=== PATIENT | female | born 1935 | race Caucasian/White ===

== ENCOUNTER 2016-07-26 15:02 | Emergency (ER) | payer OTHER, BC ==
[~2016-07-26] VITALS: Ht 160 cm; Wt 68.0 kg
--- NOTE | ~2016-07-26 | EKG ---
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 : 1935 Requested By: Estelita Pretty Order Number: [id number] MD: Christopher Hidalgo Measurements Intervals [place] Rate: 80 P: MA: QRS: -4 QRSD: 137 T: 256 QT: 452 QTc: 522 Interpretive Statements Afib/flut and V-paced complexes No further analysis attempted due to paced rhythm Compared to ECG 04/06/2016 14:11:51 Ventricular premature complex(es) no longer present Right bundle-branch block no longer present Electronically Signed On 07-26-2016 16:13:02 [employer] WORK[employer] HELPER by Christopher Hidalgo [email or web address] <ELECTRONICALLY SIGNED> By: Christopher Hidalgo MD 07/26/16 1613 151 151 Christopher Hidalgo MD /SY
[~2016-07-26 15:02] MED LIST: ASPIR 8181 MG PO; FISH OIL 1,001000 M2 PO; HCTZ; LISINOPRIL5 MG PO; MACRODANTIN25 MG; PRAVASTATIN SOD10 MG; PRILOSEC40 MG PO; UNICOMPLEX M TA1 TA1 PO
[2016-07-26] MEDS ORDERED: ELIQUIS2.5 MG PO (15:05)
[2016-07-26] MEDS ORDERED: NITROFURANTOIN100 MG PO (15:05)
[2016-07-26 15:44] LABS: HEMATOCRIT 37.4 % (37.0-47.0); HEMOGLOBIN 12.5 gm/dL (12.0-15.0); MCH 30.9 pg (26.0-34.0); MCHC 33.4 % (28.0-37.0); MCV 92.6 fL (80.0-100.0); PLATELET COUNT 289 thou/uL (150-400); RBC 4.04 mil/uL (4.20-5.00)
[2016-07-26 15:47] LABS: MANUAL DIFF YES
[2016-07-26 16:10] LABS: ABSOLUTE NEUTROPHILS 6.1 thou/uL (1.4-8.2); ANION GAP 9 mmol/L (7-16); CHLORIDE 101 mmol/L (98-107); CO2 26 mmol/L (21-32); SODIUM 136 mmol/L (136-145); TOTAL CELL COUNT 100
[2016-07-26 16:11] LABS: ANISOCYTOSIS 1+; BUN 33 mg/dL (7-18); CALCIUM 9.6 mg/dL (8.5-10.1); CREATININE 1.5 mg/dL (0.6-1.3); GLUCOSE 140 mg/dL (70-99); TROPONIN-I < 0.04 ng/mL (<0.04-0.07)
[2016-07-26 16:30] LABS: SGOT 29 U/L (15-37)
[2016-07-26 16:31] LABS: ALKALINE PHOSPHATASE 113 U/L (46-116); SGPT 18 U/L (30-65); TOTAL BILIRUBIN 0.3 mg/dL (<0.1-1.0); TOTAL PROTEIN 7.4 g/dL (6.4-8.2)
[2016-07-26 16:32] LABS: ALBUMIN 3.5 g/dL (3.4-5.0)
[2016-07-26 18:00] LABS: URINE BILIRUBIN NEGATIVE (Negative); URINE BLOOD 3+ (Negative); URINE COLOR YELLOW; URINE GLUCOSE-RANDOM* NEGATIVE (Negative); URINE KETONES NEGATIVE (Negative); URINE NITRITE NEGATIVE (Negative); URINE PROTEIN (DIPSTICK) NEGATIVE (Negative); URINE SPECIFIC GRAVITY 1.015 (1.003-1.035); URINE UROBILINOGEN 0.2 E.U./dl (0.2-1.0)
[2016-07-26 18:14] LABS: BACTERIA None Seen /HPF (None Seen); CRYSTALS None Seen /LPF (None Seen); HYALINE CASTS 0-3 Few /LPF (None Seen); SQUAMOUS 4-10 Moderate /LPF (0-3); URINE RBC >20 Many /HPF (0-2); URINE WBC 0-5 Rare /HPF (0-5)
== END 2016-07-26 19:05 | disposition home or self-care (01) ==
LOC: ER 15:02
PROVIDERS: Emergency Medicine; Physician Assistant
DX: R53.1 Weakness (principal); R42 Dizziness and giddiness; I10 Essential (primary) hypertension; Z98.890 Other specified postprocedural states; F10.99 Alcohol use, unspecified with unspecified alcohol-induced disorder; Z88.2 Allergy status to sulfonamides

== ENCOUNTER → 2017-01-21 | Outpatient (CLI) | payer OTHER, BC ==
[~2017-01-21] MED LIST changes: +ELIQUIS2.5 MG PO; +NITROFURANTOIN100 MG PO
--- NOTE | ~2017-01-21 | 2DMMODE ---
[facility] [address] [place] [address] 2 D/M-MODE ECHOCARDIOGRAM Name: SHEA CASTILLO Room #: REG [facility]#: [id number] Admission: 01/21/17 Attend Phys: Christopher Hidalgo Discharge: Date of : 31 Date of Service: 01/21/17 1245 Report #: [id number] THIS REPORT FOR: //name// APPROVED REPORT Study performed: 01/21/2017 11:04:13 EXAM: Comprehensive 2D, Doppler, and color-flow Echocardiogram Patient Location: Out-Patient Status: routine Other Information Study Quality: Adequate Indications Hypotension Dizziness and Vertigo 2D Dimensions RVDd: 32.66 mm LVEF(%): 52.36 (>50%) IVSd: 10.24 (7-11mm) LVOT Diam: 17.71 (18-24mm) LVDd: 38.51 mm PWd: 9.71 (7-11mm) Ascending Ao: 32.71 (22-36mm) LVDs: 28.35 (25-40mm) Aortic Root: 30.59 mm IVC: 1.60 mm Toribio's LVEF: 52.36 % Volumes Left Atrial Volume (Systole) Single Plane 4CH: 44.56 mL Single Plane 2CH: 56.74 mL LA ESV Index: 33.00 mL/m2 Aortic Valve AoV Peak Kelvin.: 1.23 m/s AO Peak Gr.: 6.03 mmHg LVOT Max P.76 mmHg LVOT Max V: 0.97 m/s JONO Vmax: 1.95 cm2 Mitral Valve E/A Ratio: 0.7 MV Decel. Time: 236.05 ms MV E Max Kelvin.: 0.51 m/s MV A Kelvin.: 0.70 m/s MV PHT: 68.46 ms [facility] [place] [address] 2 D/M-MODE ECHOCARDIOGRAM Name: SHEA CASTILLO [id number] Admission: 01/21/17 [facility]end [facility]: [facility] Dis[facility]: Date of : 31 Date of Service: 01/21/17 1245 Report #: [id number] IVRT: 161.48 ms Pulmonary Valve PV Peak Kelvin.: 0.79 m/s PV Peak Gr.: 2.51 mmHg Pulmonary Vein P Vein S: 0.53 m/s P Vein A: 0.30 m/s P Vein D: 0.36 m/s P Vein A Dur.: 110.7 msec P Vein S/D Ratio: 1.47 Tricuspid Valve TR Peak Kelvin.: 2.66 m/s RAP Estimate: 5.00 mmHg TR Peak Gr.: 28.21 mmHg PA Pressure: 33.00 mmHg Left Ventricle The left ventricle is normal size. There is normal LV segmental wall motion. There is normal left ventricular wall thickness. The left ventricular systolic function is normal. The left ventricular ejection fraction is within the normal range. LVEF is 55-60%. Grade I diastolic dysfunction Right Ventricle The right ventricle is normal size. The right ventricular systolic function is normal. Atria The left atrium size is dilated The right atrium size is mildly dilated Aortic Valve Aortic valve leaflets are mildly thickened. Trace aortic regurgitation. There is no aortic valvular stenosis. Mitral Valve Moderate mitral annular calcification Mild-moderate mitral regurgitation. No evidence of mitral valve stenosis. Tricuspid Valve The tricuspid valve is normal in structure. There is trace to mild tricuspid regurgitation. The right atrial pressure is estimated at 5 mmHg. There is mild pulmonary hypertension with an estimated PAP of 33 mmHg. Pulmonic Valve The pulmonary valve is normal in structure. Trace pulmonic [facility] [address] [place] [address] 2 D/M-MODE ECHOCARDIOGRAM Name: SHEA CASTILLO Room #: REG [facility]#: [id number] Admission: 01/21/17 Attend Phys: Christopher Hidalgo Discharge: Date of : 31 Date of Service: 01/21/17 1245 Report #: [id number] regurgitation. Great Vessels The aortic root is normal in size. The ascending aorta is normal in size. IVC is normal in size and collapses >50% with inspiration. Pericardium There is no pericardial effusion. <Conclusion> The left ventricular systolic function is normal. There is normal LV segmental wall motion. LVEF 55-60%. The left atrium size is dilated Aortic valve leaflets are mildly thickened. Trace aortic regurgitation, no stenosis Moderate mitral annular calcification Mild-moderate mitral regurgitation. Pulmonary artery pressure of 35mmHg There is no pericardial effusion. <ELECTRONICALLY SIGNED> By: Julio Cesar Francisco MD, FACC 01/21/17 1245 1245 1245 Julio Cesar Francisco MD, FACC /INF
== END ==
LOC: RAD 09:26
DX: I95.9 Hypotension, unspecified (principal); I48.91 Unspecified atrial fibrillation; I45.9 Conduction disorder, unspecified; R42 Dizziness and giddiness

== ENCOUNTER → 2020-10-31 | Outpatient (CLI) | payer OTHER, BC ==
[~2020-10-31] MED LIST changes: +AMLODIPINE BESYL5 MG PO; +LIPITOR 20 MG T20 M1 PO; +MAGNESIUM400 MG PO; +VITAMIN D1000 UNI1 PO
== END ==
LOC: SJCVC 14:34 → SJCVCIMAG 14:34
PROVIDERS: ATTEND Internal Medicine Cardiovascular Disease
DX: I08.3 Combined rheumatic disorders of mitral, aortic and tricuspid valves (principal); I11.9 Hypertensive heart disease without heart failure; I73.9 Peripheral vascular disease, unspecified; M79.604 Pain in right leg; M79.605 Pain in left leg; I48.0 Paroxysmal atrial fibrillation; I44.2 Atrioventricular block, complete; D68.59 Other primary thrombophilia; I48.3 Typical atrial flutter; Z95.818 Presence of other cardiac implants and grafts; Z95.0 Presence of cardiac pacemaker; Z90.710 Acquired absence of both cervix and uterus; Z98.890 Other specified postprocedural states; Z79.82 Long term (current) use of aspirin; Z79.899 Other long term (current) drug therapy; Z82.49 Family history of ischemic heart disease and other diseases of the circulatory system